=== PATIENT | male | born 1960 | race African-American/Black ===

== ENCOUNTER → 2021-03-02 | Outpatient (CLI) | payer OTHER ==
[~2021-03-02] MED LIST: CIPRO 500MG TA500 MG PO; METRONIDAZOLE500 MG PO
== END ==
LOC: MHCPAIN 13:44
DX: M47.816 Spondylosis without myelopathy or radiculopathy, lumbar region (principal); M53.3 Sacrococcygeal disorders, not elsewhere classified; G89.29 Other chronic pain
CPT/HCPCS: G0463

== ENCOUNTER → 2021-03-10 | Outpatient (CLI) | payer OTHER | LOC: MHCPAIN 14:27 | DX: M47.817 Spondylosis without myelopathy or radiculopathy, lumbosacral region (principal); M54.16 Radiculopathy, lumbar region | CPT/HCPCS: J1100; Q9967 ==

== ENCOUNTER → 2021-03-29 | Outpatient (CLI) | payer OTHER | LOC: MHCPAIN 14:21 | DX: M47.816 Spondylosis without myelopathy or radiculopathy, lumbar region (principal); M54.5 Low back pain; M53.3 Sacrococcygeal disorders, not elsewhere classified; G89.29 Other chronic pain | CPT/HCPCS: G0463 ==